=== PATIENT | male | born 1995 | race Two or more races ===

== ENCOUNTER 2016-12-04 11:59 | Emergency (ER) | payer SELFPAY ==
[2016-12-04 13:02] LABS: SPECIFIC GRAVITY 1.015 (1.001-1.030); URINE APPEARANCE CLEAR; URINE BILIRUBIN NEGATIVE (NEGATIVE); URINE BLOOD 1+ (NEGATIVE); URINE COLOR YELLOW; URINE GLUCOSE (UA) NEGATIVE (NEGATIVE); URINE LEUKOCYTE ESTERASE NEGATIVE (NEGATIVE); URINE NITRITE NEGATIVE (NEGATIVE); URINE PROTEIN NEGATIVE (NEGATIVE); URINE UROBILINOGEN NORMAL (0-1 mg/dl)
[2016-12-04 13:20] LABS: URINE RBC 0-1 /hpf
[2016-12-04 13:21] LABS: URINE BACTERIA 0; URINE EPITHELIAL CELLS 0-1 /hpf; URINE WBC NEG /hpf
== END 2016-12-04 14:17 | disposition home or self-care (01) ==
LOC: ED 11:59
DX: J11.1 Influenza due to unidentified influenza virus with other respiratory manifestations (principal); F17.210 Nicotine dependence, cigarettes, uncomplicated